=== PATIENT | male | born 1975 | race Caucasian/White ===

== ENCOUNTER 2018-06-03 15:20 | Emergency (ER) | payer OTHER ==
[~2018-06-03] VITALS: Ht 177.8 cm; Wt 78.5 kg
[2018-06-03] MEDS ORDERED: PROSCAR 5MG TABL5 MG PO (15:43)
[2018-06-03] MEDS ORDERED: PROAIR HFA8.5 GM (15:43)
[2018-06-03] MEDS ORDERED: ROBAXIN500 MG PO (16:30)
[2018-06-03 16:40] VITALS: BP 155/98
== END 2018-06-03 16:41 | disposition home or self-care (01) ==
LOC: M.ERS 15:20
DX: S16.1XXA Strain of muscle, fascia and tendon at neck level, initial encounter (principal); J45.909 Unspecified asthma, uncomplicated; V49.49XA Driver injured in collision with other motor vehicles in traffic accident, initial encounter; Y93.89 Activity, other specified; Y92.89 Other specified places as the place of occurrence of the external cause; Y99.8 Other external cause status

== ENCOUNTER 2018-09-13 20:00 | Emergency (ER) | payer OTHER ==
[~2018-09-13] VITALS: Ht 180.3 cm; Wt 79.4 kg
[~2018-09-13 20:00] MED LIST: PROAIR HFA8.5 GM; PROSCAR 5MG TABL5 MG PO; ROBAXIN500 MG PO
[2018-09-13 20:28] LABS: ABSOLUTE EOSINOPHILS 0.3 thou/uL (0.0-0.7); ABSOLUTE LYMPHOCYTES 2.1 thou/uL (0.8-5.3); ABSOLUTE MONOCYTES 0.5 thou/uL (0.0-1.2); ABSOLUTE NEUTROPHILS 3.3 thou/uL (1.6-8.1); BASOPHILS 0.7 %; EOSINOPHILS 4.7 %; HEMOGLOBIN 14.9 gm/dL (14.0-18.0); LYMPHOCYTES 33.8 %; MCH 28.2 pg (26.0-34.0); MCHC 33.9 g/dL (28.0-37.0); MCV 83.1 fL (80.0-100.0); MONOCYTES 7.2 %; MPV 8.3 fl. (7.2-11.1); NUCLEATED RBCS 0 /100WBC; PLATELET COUNT* 231 thou/uL (150-400); POLYS 53.6 %; RBC 5.29 mil/uL (4.50-6.00); RDW-CV 13.3 % (10.5-14.5); WBC 6.2 thou/uL (4.0-11.0)
[2018-09-13 20:38] LABS: INR 1.1; PROTIME 10.9 Seconds (9.20-11.50)
[2018-09-13 20:45] LABS: URINE BILIRUBIN NEGATIVE (Negative); URINE BLOOD NEGATIVE (Negative); URINE CLARITY CLEAR; URINE COLOR YELLOW; URINE GLUCOSE-RANDOM NEGATIVE (Negative); URINE KETONES NEGATIVE (Negative); URINE LEUKOCYTES-REFLEX NEGATIVE (Negative); URINE NITRITE-REFLEX NEGATIVE (Negative); URINE PROTEIN NEGATIVE (Negative); URINE UROBILINOGEN 0.2 E.U./dl (0.2-1.0)
[2018-09-13 20:46] LABS: ANION GAP 9 mmol/L (7-16); BUN 13 mg/dL (7-18); CALCIUM 9.2 mg/dL (8.5-10.1); CHLORIDE 106 mmol/L (98-107); CO2 29 mmol/L (21-32); CREATININE 1.4 mg/dL (0.6-1.3); GLUCOSE 102 mg/dL (70-99); POTASSIUM 3.4 mmol/L (3.5-5.1); SODIUM 144 mmol/L (136-145); TROPONIN-I LEVEL <0.06 ng/mL (<0.06)
[2018-09-13 20:47] LABS: ALBUMIN 4.3 g/dL (3.4-5.0); ALKALINE PHOSPHATASE 74 U/L (46-116); LIPASE 127 U/L (73-393); NT-PRO BRAIN NAT PEPTIDE 45 pg/mL (<300); SGOT 20 U/L (15-37); SGPT 38 U/L (30-65); TOTAL BILIRUBIN 0.5 mg/dL (<0.1-1.0); TOTAL PROTEIN 7.5 g/dL (6.4-8.2)
[2018-09-13 21:47] VITALS: BP 139/90
--- NOTE | 2018-09-14 15:13 | EKG ---
[place] [address] ELECTROCARDIOGRAM REPORT Name: ADELITA ORTIZ Room: [facility]#: [id number] Admission: 09/13/18 Attend Phys: Discharge: 09/13/18 Date of : 79 Report #: [id number] THIS REPORT FOR: //name// [facility] ED Test Date: 2018-09-13 Test Time: 20:10:36 Pat Name: ADELITA ORTIZ Department: Room: Gender: M [employer] Stack [employer] Developer: JOSEPH : 1975 Requested By: Brenda Templeton Order Number: [id number] MD: Lonnie Wei Measurements Intervals [place] Rate: 89 P: 73 [place]: 141 QRS: 50 QRSD: 100 T: -1 QT: 376 QTc: 458 Interpretive Statements Sinus rhythm Borderline T abnormalities, inferior leads No previous ECG available for comparison Electronically Signed On 09-14-2018 15:13:40 CDT by Lonnie Wei [email or web address] <ELECTRONICALLY SIGNED> By: Lonnie Wei MD, [facility] 09/14/18 1513 09 09 Lonnie Wei MD, FACC /EPI
== END 2018-09-13 21:49 | disposition home or self-care (01) ==
LOC: M.ERS 20:00
PROVIDERS: Emergency Medicine
DX: R07.89 Other chest pain (principal); J45.909 Unspecified asthma, uncomplicated